=== PATIENT | male | born 1970 | race Caucasian/White ===

== ENCOUNTER 2017-04-09 15:39 | Emergency (ER) | payer OTHER ==
[~2017-04-09] VITALS: Ht 182.9 cm; Wt 89.5 kg
[2017-04-09 15:43] VITALS: TEMP 36.6; Ht 182.9 cm; Wt 89.5 kg
--- NOTE | 2017-04-09 16:23 | DIAGNOSTIC IMAGING REPORT ---
CT FACIAL BONES-MXILLOFAC WITHOUT CT DOSE: CLINICAL HISTORY: Left-sided facial pain status post trauma COMPARISON STUDY: No previous studies for comparison. TECHNIQUE: Helical images were acquired in the transverse plane. The study was reviewed and analyzed on the independent 3-D workstation. A dose lowering technique was utilized adhering to the principles of ALARA. The pterygoid plates appear intact. The zygomatic arches appear intact. The globes appear intact. There is no evidence of orbital emphysema. The orbital jessica and floor appear intact. The mandibular condyles appear intact. IMPRESSION: No facial fractures identified. Electronically signed by: Romain Fuller M.D. 04/09/2017 4:22 PM Dictated Date/Time: 04/09/2017 4:18 PM
[2017-04-09 16:55] VITALS: BP 161/100; PULSE 78; O2SAT 98
[2017-04-09] MEDS ORDERED: MOME6000 NAE (16:56)
[2017-04-09] MEDS ORDERED: PARO1TAB29 PO (16:56)
[2017-04-09] MEDS ORDERED: EYED OP (16:56)
[2017-04-09] MEDS ORDERED: LISI-725 PO (16:56)
[2017-04-09] MEDS ORDERED: NXM/40 PO (16:56)
[2017-04-09] MEDS ORDERED: MESA1.2T PO (16:56)
[2017-04-09] MEDS ORDERED: ATOR-24 PO (16:56)
[2017-04-09] MEDS ORDERED: RMCI IV (16:56)
[2017-04-09] MEDS ORDERED: MULT-506 PO (16:56)
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
== END 2017-04-09 16:55 | disposition home or self-care (01) ==
LOC: C.EDB 15:41 → C.EDD 16:55
DX: R51 Headache (principal); Y04.2XXA Assault by strike against or bumped into by another person, initial encounter; Y92.149 Unspecified place in prison as the place of occurrence of the external cause; Y99.0 Civilian activity done for income or pay; I10 Essential (primary) hypertension; J30.2 Other seasonal allergic rhinitis; F41.9 Anxiety disorder, unspecified; K21.9 Gastro-esophageal reflux disease without esophagitis; F17.200 Nicotine dependence, unspecified, uncomplicated